=== PATIENT | female | born 1960 | race Caucasian/White ===

== ENCOUNTER 2023-06-24 12:55 | Emergency (ER) | payer OTHER ==
[~2023-06-24] VITALS: Ht 152.4 cm; Wt 63.5 kg
[2023-06-24 13:23] VITALS: BP 133/92; PULSE 88; RESP 16; TEMP 97.9; O2SAT 99
[2023-06-24] MEDS: ACETAMINOPHEN 325 MG TAB PO ONE (14:16)
[2023-06-24] MEDS ORDERED: ACET-10509 PO (15:04)
[2023-06-24 15:21] VITALS: BP 128/88; PULSE 78; RESP 15; TEMP 98; O2SAT 100
== END 2023-06-24 15:21 | disposition home or self-care (01) ==
LOC: MED 12:55
DX: S09.90XA Unspecified injury of head, initial encounter (principal); R03.0 Elevated blood-pressure reading, without diagnosis of hypertension; W01.198A Fall on same level from slipping, tripping and stumbling with subsequent striking against other object, initial encounter; Y92.89 Other specified places as the place of occurrence of the external cause; Y93.89 Activity, other specified; Y99.8 Other external cause status
CPT/HCPCS: 70450; 99284